=== PATIENT | female | born 1970 | race African-American/Black ===

== ENCOUNTER 2021-06-10 06:47 | Day surgery (SDC) | payer OTHER ==
[~2021-06-10] VITALS: Ht 154.9 cm; Wt 66.7 kg
[2021-06-10] MEDS ORDERED: LIDOCAINE 2% 100 MG/5 ML UJET TP ONE ×2 (07:45→08:15)
[2021-06-10] MEDS ORDERED: fentaNYL citrate 0.05 MG/ML VIAL ONE (07:45)
[2021-06-10] MEDS ORDERED: diphenhydrAMINE 50 MG/ML VIAL ONE (07:45)
[2021-06-10] MEDS ORDERED: MIDAZOLAM 5 MG/5 ML VIAL ONE (07:45)
[2021-06-10] MEDS ORDERED: fentaNYL citrate 0.05 MG/ML VIAL IVP ONE (08:15)
[2021-06-10] MEDS ORDERED: MIDAZOLAM 2 MG/2 ML VIAL IVP ONE (08:15)
== END 2021-06-10 09:33 | disposition home or self-care (01) ==
LOC: MDS 06:47 → MMU 06:52 → MDS 09:33
PROVIDERS: ATTEND Internal Medicine Gastroenterology
DX: Z12.11 Encounter for screening for malignant neoplasm of colon (principal); D12.1 Benign neoplasm of appendix; Z79.899 Other long term (current) drug therapy
CPT/HCPCS: 45385; 88305; J2250; J3010; J1200